=== PATIENT | female | born 1995 | race Caucasian/White ===

== ENCOUNTER → 2018-01-21 | Outpatient (CLI) | payer BC ==
--- NOTE | 2018-01-21 14:01 | RADIOLOGY REPORT (SQ) ---
EXAM DESCRIPTION: KUB COMPLETED DATE/TIME: 01/21/2018 1:49 pm REASON FOR STUDY: UNSPECIFIED ABDOMINAL PAIN R10.9 UNSPECIFIED ABDOMINAL PAIN R10.9 UNSPECIFIED AB DOMINAL PAIN R10.9 UNSPECIFIED ABDOMINAL PAIN COMPARISON: None. NUMBER OF VIEWS: One view. TECHNIQUE: Supine radiographic image of the abdomen acquired. LIMITATIONS: None. FINDINGS: BOWEL GAS PATTERN: Normal bowel gas pattern. No dilated loops. Small amount of radiopaque stool in the right colon and rectosigmoid. This could be related to Pepto-Bismol or antacids. CALCIFICATIONS: No suspicious calcifications. SOFT TISSUES: No gross mass or suggestion of organomegaly. HARDWARE: None in the abdomen. BONES: No acute fracture. No worrisome bone lesions. OTHER: No other significant finding. IMPRESSION: Nonobstructive bowel gas pattern TECHNICAL DOCUMENTATION: JOB ID: [id number] [employer]- All Rights Reserved Reading location - IP/workstation name: [email or web address]
[2018-01-21 14:02] LABS: ABSOLUTE EOSINOPHILS # (AUTO) 0.1 10^3/uL (0.0-0.6); ABSOLUTE LYMPHOCYTES (AUTO) 1.4 10^3/uL (0.5-4.7); ABSOLUTE MONOCYTES (AUTO) 0.8 10^3/uL (0.1-1.4); ABSOLUTE NEUT (AUTO) 5.3 10^3/uL (1.7-8.2); BASOPHILS % (AUTO) 0.2 % (0-2); EOSINOPHILS % (AUTO) 1.2 % (0-6); HEMATOCRIT 42.8 % (36.0-47.0); HEMOGLOBIN 14.7 g/dL (12.0-15.5); LYMPHOCYTES % (AUTO) 18.2 % (13-45); MEAN CORPUSCULAR HEMOGLOBIN 32.1 pg (27.0-33.4); MEAN CORPUSCULAR HGB CONC 34.5 g/dL (32.0-36.0); MEAN CORPUSCULAR VOLUME 93 fl (80-97); MONOCYTES % (AUTO) 10.9 % (3-13); PLATELET COUNT 200 10^3/uL (150-450); RED BLOOD COUNT 4.59 10^6/uL (3.72-5.28); RED CELL DISTRIBUTION WIDTH 13.7 % (11.5-14.0); SEGMENTED NEUTROPHILS % (AUTO) 69.5 % (42-78); TOTAL CELLS COUNTED % (AUTO) 100 %; WHITE BLOOD COUNT 7.6 10^3/uL (4.0-10.5)
[2018-01-21 14:20] LABS: ALANINE AMINOTRANSFERASE 28 U/L (9-52); ALBUMIN 4.2 g/dL (3.5-5.0); ALKALINE PHOSPHATASE 87 U/L (38-126); ANION GAP 11 (5-19); ASPARTATE AMINO TRANSFERASE 25 U/L (14-36); BILIRUBIN,DIRECT 0.2 mg/dL (0.0-0.4); BILIRUBIN,TOTAL 1.1 mg/dL (0.2-1.3); BLOOD UREA NITROGEN 6 mg/dL (7-20); CALCIUM 10.2 mg/dL (8.4-10.2); CARBON DIOXIDE 29 mmol/L (22-30); CHLORIDE 103 mmol/L (98-107); GLUCOSE 94 mg/dL (75-110); LIPASE 20.6 U/L (23-300); POTASSIUM 4.3 mmol/L (3.6-5.0); SODIUM 143.1 mmol/L (137-145); TOTAL PROTEIN 7.1 g/dL (6.3-8.2)
== END ==
LOC: OD 13:27
PROVIDERS: ATTEND Nurse Practitioner Acute Care
DX: R10.9 Unspecified abdominal pain (principal)
CPT/HCPCS: 36415; 74018; 80053; 83690; 85025; 87086

== ENCOUNTER 2018-02-15 12:01 | Inpatient (IN) | payer BC ==
[~2018-02-15 12:01] MED LIST: GLYCOPYRROLATE INJ 0.4 MG/2 ML VIAL ONE; KETOROLAC TROMETHAMINE 60 MG/2 ML SDV ONE; NEOSTIGMINE METHYLSULFATE 10 MG/10 ML VIAL ONE; ONDANSETRON HCL INJ/PF 4 MG/2 ML SDV ONE; ROCURONIUM BROMIDE INJ 50 MG/5 ML VIAL IV ONE; SUCCINYLCHOLINE CHLORIDE INJ 200 MG/10 ML VIAL ONE
[2018-02-15] MEDS ORDERED: ONDANSETRON HCL INJ/PF 4 MG/2 ML SDV IV ONE (12:28)
[2018-02-15] MEDS ORDERED: FENTANYL CITRATE INJ/PF 100 MCG/2 ML AMPUL IV ONE (12:28)
--- NOTE | 2018-02-15 12:31 | ER Document Report ---
ED Medical Screen (RME) - General Chief Complaint: Abdominal Pain Stated Complaint: VOMITING Time Seen by Provider: 02/15/18 12:27 Notes: RAPID MEDICAL EVALUATION DISCLOSURE I have seen this patient as part of a Rapid Medical Evaluation and, if applicable, placed any initially appropriate orders. The patient will be seen and fully evaluated, including a full history and physical exam, by a provider ( in Main ED or Fast Track) when a room becomes available. 22-year-old female here with complaints of right upper quadrant abdominal pain ongoing for the past 1-1/2 months. They saw their PCP and blood work and x- rays were reported as normal. She has not had a CT or ultrasound. She has noticed that the pain worsens after eating food specifically but has not noticed anything else making the pain worse. She usually has nausea and vomiting after eating food as well. She is here today because over the past 12- 15 hours, she has been constantly having nausea and vomiting. They went to their PCP again today and were sent here for evaluation. No prior history of pancreatitis. EXAM Moderate right upper quadrant TTP Mild epigastric TTP No RLQ TTP TRAVEL OUTSIDE OF THE [place] IN LAST 30 DAYS: No - Related Data Allergies/Adverse Reactions: No Known Allergies Allergy (Unverified 02/15/18 12:05) Past Medical History - Social History Chew tobacco use (# tins/day): No Frequency of alcohol use: None Drug Abuse: None Renal/ Medical History: Denies: Hx Peritoneal Dialysis Physical Exam - Vital signs Vitals: Temp Pulse Resp BP Pulse Ox 98.7 F 81 20 128/92 H 100 02/15/18 12:18 02/15/18 12:18 02/15/18 12:18 02/15/18 12:18 02/15/18 12:18 Course - Vital Signs Vital signs: Temp Pulse Resp BP Pulse Ox 98.7 F 81 20 128/92 H 100 02/15/18 12:18 02/15/18 12:18 02/15/18 12:18 02/15/18 12:18 02/15/18 12:18
[2018-02-15 13:43] LABS: ABSOLUTE LYMPHOCYTES (AUTO) 1.5 10^3/uL (0.5-4.7); ABSOLUTE MONOCYTES (AUTO) 0.6 10^3/uL (0.1-1.4); ABSOLUTE NEUT (AUTO) 9.7 10^3/uL (1.7-8.2); BASOPHILS % (AUTO) 0.2 % (0-2); EOSINOPHILS % (AUTO) 0.1 % (0-6); HEMATOCRIT 50.1 % (36.0-47.0); HEMOGLOBIN 16.8 g/dL (12.0-15.5); LYMPHOCYTES % (AUTO) 12.7 % (13-45); MEAN CORPUSCULAR HEMOGLOBIN 30.8 pg (27.0-33.4); MEAN CORPUSCULAR HGB CONC 33.6 g/dL (32.0-36.0); MEAN CORPUSCULAR VOLUME 92 fl (80-97); MONOCYTES % (AUTO) 5.2 % (3-13); PLATELET COUNT 331 10^3/uL (150-450); RED BLOOD COUNT 5.46 10^6/uL (3.72-5.28); RED CELL DISTRIBUTION WIDTH 14.4 % (11.5-14.0); SEGMENTED NEUTROPHILS % (AUTO) 81.8 % (42-78); TOTAL CELLS COUNTED % (AUTO) 100 %; WHITE BLOOD COUNT 11.8 10^3/uL (4.0-10.5)
[2018-02-15 14:00] LABS: ALANINE AMINOTRANSFERASE 25 U/L (9-52); ALBUMIN 4.4 g/dL (3.5-5.0); ALKALINE PHOSPHATASE 85 U/L (38-126); ANION GAP 17 (5-19); ASPARTATE AMINO TRANSFERASE 22 U/L (14-36); BILIRUBIN,DIRECT 0.4 mg/dL (0.0-0.4); BILIRUBIN,TOTAL 0.7 mg/dL (0.2-1.3); BLOOD UREA NITROGEN 11 mg/dL (7-20); CALCIUM 10.4 mg/dL (8.4-10.2); CARBON DIOXIDE 27 mmol/L (22-30); CHLORIDE 99 mmol/L (98-107); GLUCOSE 113 mg/dL (75-110); LIPASE 25.7 U/L (23-300); POTASSIUM 5.4 mmol/L (3.6-5.0); SODIUM 142.5 mmol/L (137-145); TOTAL PROTEIN 8.3 g/dL (6.3-8.2)
[2018-02-15 14:19] LABS: APPEARANCE,URINE SLIGHTLY-CLOUDY; BILIRUBIN,URINE NEGATIVE (NEGATIVE); COLOR,URINE AMBER; GLUCOSE, URINE NEGATIVE (NEGATIVE); KETONES,URINE 20 mg/dL (NEGATIVE); LEUKOCYTE ESTERASE,URINE SMALL (NEGATIVE); NITRITE,URINE NEGATIVE (NEGATIVE); PROTEIN,URINE 30 mg/dL (NEGATIVE); URINE SPECIFIC GRAVITY 1.025
--- NOTE | 2018-02-15 14:34 | ER Document Report ---
ED General - General Chief Complaint: Abdominal Pain Stated Complaint: VOMITING Time Seen by Provider: 02/15/18 12:27 Notes: Patient is a 22 year old female who presents from with a chief complaint of generalized abdominal pain for 6 weeks now with associated nausea and vomiting that started yesterday. They state that they had gone to a urgent care where they had labs and an x-ray done and told to do bland diet. They did not follow- up with their primary care afterwards. They state that they went back to the urgent care today and they referred over to the ED given her prolonged abdominal pain. She points to periumbilical region of her pain. She states however that she has constant abdominal pain that worsens postprandial. She states that it is a sharp stabbing pain in her stomach and right upper quadrant. She states that last time she was 530 last evening but she had nausea and vomiting throughout yesterday. She denies any fevers or chills. Patient admits to daily cigarette smoking, states that she does not drink anymore but from July to December she was drinking approximately 1 bottle of wine a day. She states that she does not drink any hard liquor anything currently. She denies any drug use. Patient states she is sexually active and has had a history of irregular periods. Has never had a Pap smear in the past. Denies any episodes of abnormal vaginal bleeding or discharge TRAVEL OUTSIDE OF THE [place] IN LAST 30 DAYS: No - Related Data Allergies/Adverse Reactions: No Known Allergies Allergy (Verified 02/15/18 16:33) Past Medical History - Social History Smoking Status: Never Smoker Chew tobacco use (# tins/day): No Frequency of alcohol use: None Drug Abuse: None Family History: Reviewed & Not Pertinent Patient has suicidal ideation: No Patient has homicidal ideation: No Renal/ Medical History: Denies: Hx Peritoneal Dialysis Review of Systems - Review of Systems Constitutional: No symptoms reported Cardiovascular: No symptoms reported Respiratory: No symptoms reported Gastrointestinal: See HPI Genitourinary: No symptoms reported Female Genitourinary: Irregular period Musculoskeletal: No symptoms reported Physical Exam - Vital signs Vitals: Temp Pulse Resp BP Pulse Ox 98.7 F 81 20 128/92 H 100 02/15/18 12:18 02/15/18 12:18 02/15/18 12:18 02/15/18 12:18 02/15/18 12:18 - Notes Notes: PHYSICAL EXAM GENERAL: Alert, interacts well. HEAD: Normocephalic, atraumatic. EYES: Pupils equal, round, and reactive to light. Extraocular movements intact. ENT: Oral mucosa moist, tongue midline. NECK: Full range of motion. Supple. Trachea midline. LUNGS: Clear to auscultation bilaterally, no wheezes, rales, or rhonchi. No respiratory distress. HEART: Regular rate and rhythm. No murmurs, gallops, or rubs. ABDOMEN: Soft, mild-moderate distention, moderate diffuse tenderness. No guarding, rebound, or rigidity.. Bowel sounds present in all 4 quadrants. EXTREMITIES: Moves all 4 extremities spontaneously. No edema, radial and dorsalis pedis pulses 2/4 bilaterally. No cyanosis. NEUROLOGICAL: Alert and oriented x4. Normal speech. PSYCH: Normal affect, normal mood. SKIN: Warm, dry, normal turgor. No rashes or lesions noted. Course - Re-evaluation Re-evalutation: 02/15/18 14:48 Patient is a 22-year-old female who presents emergency department with chronic six-week abdominal pain that is constant with intermittent sharp stabbing pains. A gallbladder workup was ordered in triage. Ultrasound does not reveal any evidence of cholecystitis or choledocholithiasis however there is ascites surrounding the liver. Based on this abnormality in an otherwise healthy 22- year-old and abdominal distention, CT the abdomen and pelvis with IV contrast was ordered. 02/15/18 17:[address] the abdomen and pelvis shows evidence of moderate ascites with a complete small bowel obstruction with equalization within the small bowel as well as complicated bilateral cystic structures on the ovaries. Case was reviewed with attending surgeon piped buttonhole machine operator Dr. Galeas who assessed the patient and agrees to take her to the OR to decompress her small bowel obstruction and will send the ascites for analysis. A consult has been placed as well as the case reviewed with Dr. Amanda regarding her complicated cystic structures on bilateral ovaries. She states that she will consult in house. Did review this with family at the bedside who were agreeable for admission. - Vital Signs Vital signs: Temp Pulse Resp BP Pulse Ox 98.7 F 81 20 128/92 H 100 02/15/18 12:18 02/15/18 12:18 02/15/18 12:18 02/15/18 12:18 02/15/18 12:18 - Laboratory Result Diagrams: 02/15/18 13:04 02/15/18 18:00 Laboratory results interpreted by me: 02/15/18 02/15/18 02/15/18 13:04 13:04 13:53 WBC 11.8 H RBC 5.46 H Hgb 16.8 H Hct 50.1 H RDW 14.4 H Seg Neutrophils % 81.8 H Lymphocytes % 12.7 L Absolute Neutrophils 9.7 H Potassium 5.4 H Glucose 113 H Calcium 10.4 H Total Protein 8.3 H Urine Protein 30 H Urine Ketones 20 H Urine Urobilinogen 2.0 H Ur Leukocyte Esterase SMALL H Urine Ascorbic Acid 40 H - Diagnostic Test Radiology reviewed: Image reviewed, Reports reviewed Discharge - Discharge Clinical Impression: SBO (small bowel obstruction) Ovarian cyst Qualifiers: Laterality: bilateral Qualified Code(s): N83.201 - Unspecified ovarian cyst, right side Ascites Qualifiers: Ascites type: other type Qualified Code(s): R18.8 - Other ascites Condition: Stable Disposition: ADMITTED INPATIENT Admitting Provider: Surgicalist Unit Admitted: Surgical Floor
--- NOTE | 2018-02-15 14:41 | RADIOLOGY REPORT (SQ) ---
EXAM DESCRIPTION: U/S ABDOMEN LIMITED W/O DOP COMPLETED DATE/TIME: 02/15/2018 2:12 pm REASON FOR STUDY: RUQ pain after eating COMPARISON: None. TECHNIQUE: Dynamic and static grayscale images acquired of the abdomen and recorded on PACS. Additio nal selected color Doppler and spectral images recorded. LIMITATIONS: None. FINDINGS: PANCREAS: No definite abnormality seen. LIVER: The liver demonstrates normal echogenicity measuring 15.2 cm. LIVER VASCULATURE: Normal directional flow of the main portal vein and hepatic veins. GALLBLADDER: The gallbladder demonstrates no abnormality. The wall thickness is 1 mm. ULTRASOUND-DETECTED BLANCA'S SIGN: Negative. INTRAHEPATIC DUCTS AND COMMON DUCT: CBD measures 3.5 mm. Intrahepatic ducts normal caliber. No filli ng defects. INFERIOR VENA CAVA: Normal flow. AORTA: The proximal abdominal aorta measures 1.9 cm in AP diameter. The mid abdominal aorta measures 1.6 cm in AP diameterr and distally 1.3 cm. RIGHT KIDNEY: The right kidney is normal measuring 10.2 cm in length by 3.5 cm in AP diameter by 4.4 cm in transverse diameter. No hydronephrosis. PERITONEAL AND RIGHT PLEURAL SPACE: Perihepatic ascites. OTHER: No other significant findings. IMPRESSION: Evidence of ascites. Otherwise, normal limited abdominal ultrasound. TECHNICAL DOCUMENTATION: JOB ID: [id number] SC-[id number] 2010 [employer]- All Rights Reserved Reading location - IP/workstation name: [email or web address]
--- NOTE | 2018-02-15 16:16 | RADIOLOGY REPORT (SQ) ---
EXAM DESCRIPTION: CT ABD/PELVIS WITH IV ONLY COMPLETED DATE/TIME: 02/15/2018 3:23 pm REASON FOR STUDY: generalized abdominal pain, ascites COMPARISON: None. TECHNIQUE: CT scan of the abdomen and pelvis performed using helical scanning technique with dynamic intravenous contrast injection. No oral contrast. Images reviewed with lung, soft tissue, and bone windows. Reconstructed coronal and sagittal MPR images reviewed. Delayed images for evaluation of the urinary system also acquired. All images stored on PACS. All CT scanners at this facility use dose modulation, iterative reconstruction, and/or weight based d osing when appropriate to reduce radiation dose to as low as reasonably achievable (ALARA). [facility]: Dose Right [facility]: CareDose [facility]: Dose Right [facility]: Teradose 4D [facility]: Mobio CONTRAST TYPE AND DOSE: Isovue 370. 66 mL. RENAL FUNCTION: Creatinine: 0.63 RADIATION DOSE: 523.9 LIMITATIONS: None. FINDINGS: LOWER CHEST: No abnormality seen. LIVER: No abnormality seen. The liver is borderline in size measuring 17.1 cm in length. SPLEEN: No abnormality seen. PANCREAS: No abnormality seen. GALLBLADDER: No abnormality seen. ADRENAL GLANDS: No abnormality seen. RIGHT KIDNEY AND URETER: No abnormality seen. LEFT KIDNEY AND URETER: No abnormality seen. AORTA AND VESSELS: No aneurysm. No dissection. Renal arteries, SMA, celiac without stenosis. RETROPERITONEUM: No retroperitoneal adenopathy, hemorrhage or masses. BOWEL AND PERITONEAL CAVITY: There is evidence of marked distention of small bowel in the upper and m id abdomen with fecalization of small bowel noted. The findings are consistent with at least a parti al small bowel obstruction. The distal small bowel is less distended than bowel proximal to the righ t lower quadrant. There are thickened loops of small bowel noted in the right lower abdomen. Hiatal hernia is noted. APPENDIX: Not well visualized. PELVIS: Uterus and adnexal regions: The uterus is normal. There is evidence of bilateral ovarian cy st. The largest ovarian cyst on the right measures 2.5 x 2 cm PE There is evidence of prominent cyst ic mass in the left adnexal region measuring 3.6 x 4.1 x 4.1 cm. Follow-up pelvic ultrasound would b e useful. ABDOMINAL WALL: No masses. No hernias. BONES: No significant or acute findings. OTHER: No other significant finding. IMPRESSION: 1. Borderline hepatomegaly. Changes of abdominal and pelvic ascites. 2. Findings con sistent with partial small bowel obstruction. 3. Bilateral ovarian cyst. Prominent cystic mass ext ending from left ovary measuring 3.6 x 4.1 by 4.1 cm. COMMENT: The findings were discussed with Julienne Bird. Pelvic ultrasound will be obtained. TECHNICAL DOCUMENTATION: JOB ID: [id number] SC-[id number] Quality ID # [id number]: Final reports with documentation of one or more dose reduction techniques (e.g., Au tomated exposure control, adjustment of the mA and/or kV according to patient size, use of iterative reconstruction technique) 2010 [employer]- All Rights Reserved Reading location - IP/workstation name: [email or web address]
[2018-02-15] MEDS ORDERED: RINGERS SOLUTION,LACTATED 1,000 ML IV PRN (17:25)
--- NOTE | 2018-02-15 17:26 | PDOC H&P ---
History of Present Illness Admission Date/PCP: 02/15/18 17:04 Patient complains of: abdominal pain, nausea, vomiting History of Present Illness: FARHAD STEWART is a 22 year old female with a several month history of abdominal pain. Previously, her abdominal pain waxes and wanes. She has a history of large amounts of alcohol use, however she quit drinking approximately 2 months ago. Patient reports increasing distention for the last 12-24 hours with sharp, stabbing, unrelenting abdominal pain. The pain is worse on her right side. Her pain has never become severe like this before. Nothing makes the pain better. Palpation and movement make the pain worse. The patient reports several episodes of emesis. The patient has not had a bowel movement in several days. Past Medical History Cardiac Medical History: Reports: None Pulmonary Medical History: Reports: None EENT Medical History: Reports: None Neurological Medical History: Reports: None Endocrine Medical History: Reports: None Renal/ Medical History: Reports: None Malignancy Medical History: Reports: None GI Medical History: Reports: None Musculoskeltal Medical History: Reports: None Skin Medical History: Reports: None Psychiatric Medical History: Reports: None, Other - History of alcohol abuse, reports that she quit drinking 2 months ago. Traumatic Medical History: Reports: None Hematology: Reports: None Infectious Medical History: Reports: None Past Surgical History Past Surgical History: Reports: None Social History Smoking Status: Never Smoker Frequency of Alcohol Use: Heavy - Previously heavy, but reports that she quit drinking 2 months ago. Last Alcohol Use: 12/18/17 Family History Family History: Malignancy - Unknown bone cancer maternal grandmother Parental Family History Reviewed: Yes Children Family History Reviewed: Yes Sibling(s) Family History Reviewed.: Yes Medication/Allergy Allergies/Adverse Reactions: No Known Allergies Allergy (Verified 02/15/18 16:33) Review of Systems Constitutional: PRESENT: anorexia, chills, fatigue, weakness Eyes: ABSENT: visual disturbances Ears: ABSENT: hearing changes Nose, Mouth, and Throat: ABSENT: sore throat Cardiovascular: ABSENT: chest pain, dyspnea on exertion, palpitations Respiratory: ABSENT: cough, dyspnea, hemoptysis Gastrointestinal: PRESENT: abdominal pain, bloating, nausea, vomiting. ABSENT: hematemesis Genitourinary: ABSENT: dysuria, hematuria Musculoskeletal: ABSENT: back pain, joint swelling Integumentary: ABSENT: lesions, pruritus, rash Neurological: ABSENT: abnormal gait, abnormal speech, confusion, memory loss, numbness, paresthesias Psychiatric: ABSENT: anxiety, hallucinations Endocrine: ABSENT: cold intolerance, heat intolerance Hematologic/Lymphatic: ABSENT: easy bleeding, easy bruising Physical Exam Vital Signs: Temp Pulse Resp BP Pulse Ox 98.7 F 81 20 128/92 H 100 02/15/18 12:18 02/15/18 12:18 02/15/18 12:18 02/15/18 12:18 02/15/18 12:18 General appearance: PRESENT: mild distress - Abdominal Head exam: PRESENT: atraumatic, normocephalic Eye exam: PRESENT: EOMI, PERRLA. ABSENT: conjunctival injection, scleral icterus Mouth exam: PRESENT: moist, neck supple Teeth exam: ABSENT: poor dentation Neck exam: ABSENT: lymphadenopathy, meningismus, tenderness, thyromegaly, tracheal deviation Respiratory exam: PRESENT: clear to auscultation meka, tachypnea. ABSENT: chest wall tenderness, rales, retraction, rhonchi Cardiovascular exam: PRESENT: tachycardia - Mild Pulses: PRESENT: normal radial pulses Vascular exam: PRESENT: normal capillary refill. ABSENT: pallor GI/Abdominal exam: PRESENT: distended, guarding, tenderness, other - Involuntary guarding and peritonitis present on exam. Rectal exam: PRESENT: deferred Extremities exam: ABSENT: tenderness Musculoskeletal exam: PRESENT: normal inspection. ABSENT: tenderness Neurological exam: PRESENT: alert, awake, oriented to person, oriented to place , oriented to time, CN II-XII grossly intact. ABSENT: motor sensory deficit Psychiatric exam: PRESENT: anxious Skin exam: ABSENT: cyanosis, erythema, jaundice Results Impressions: Abdomen Ultrasound 02/15/18 12:28 IMPRESSION: Evidence of ascites. Otherwise, normal limited abdominal ultrasound. Abdomen/Pelvis CT 02/15/18 14:48 IMPRESSION: 1. Borderline hepatomegaly. Changes of abdominal and pelvic ascites. 2. Findings consistent with partial small bowel obstruction. 3. Bilateral ovarian cyst. Prominent cystic mass extending from left ovary measuring 3.6 x 4.1 by 4.1 cm. Assessment & Plan - Diagnosis (1) Ascites Qualifiers: Ascites type: other type Qualified Code(s): R18.8 - Other ascites Is this a current diagnosis for this admission?: Yes (2) Ovarian cyst Qualifiers: Laterality: bilateral Qualified Code(s): N83.201 - Unspecified ovarian cyst , right side; N83.202 - Unspecified ovarian cyst, left side; N83.202 - Unspecified ovarian cyst, left side Is this a current diagnosis for this admission?: Yes (3) SBO (small bowel obstruction) Is this a current diagnosis for this admission?: Yes - Inpatient Certification Medical Necessity: Need for Surgery - Plan Summary Plan Summary: This is a 22-year-old female with a several month history of abdominal pain. She reports that her pain became severe yesterday, and was accompanied by distention. She also reports multiple episodes of vomiting over the last 12 hours. She has been unable to keep down any food or liquid today. Patient has a CT scan consistent with a complete bowel obstruction with fecalization of the small bowel contents. She also has signs of peritonitis on exam. She has no history of previous surgery. I have recommended exploration to relieve her bowel obstruction and ascertain the cause. Further treatment to be determined after surgery, once the cause of her bowel obstruction is more clear. I will consult [facility] for an evaluation regarding her ovarian cysts.
[2018-02-15] MEDS ORDERED: CEFOXITIN INJ 1 GM VIAL IV ONE (17:28)
[2018-02-15] MEDS ORDERED: FENTANYL CITRATE INJ/PF 250 MCG/5 ML AMPULE ONE (17:36)
[2018-02-15] MEDS ORDERED: MIDAZOLAM 2 MG/2 ML INJ ONE (17:36)
[2018-02-15] MEDS ORDERED: EPHEDRINE SULFATE INJ 50 MG/1 ML AMPULE ONE (17:36)
[2018-02-15] MEDS ORDERED: ACETAMINOPHEN 100 ML IV ONE (17:37)
[2018-02-15] MEDS ORDERED: HYDROMORPHONE HCL INJ/PF 2 MG/ML AMPULE ONE (17:37)
[2018-02-15] MEDS ORDERED: PROPOFOL INJ 200 MG/20 ML VIAL IV ONE (17:37)
[2018-02-15 18:34] LABS: ANION GAP 13 (5-19); BLOOD UREA NITROGEN 12 mg/dL (7-20); CALCIUM 9.5 mg/dL (8.4-10.2); CARBON DIOXIDE 28 mmol/L (22-30); CHLORIDE 100 mmol/L (98-107); GLUCOSE 98 mg/dL (75-110); POTASSIUM 4.5 mmol/L (3.6-5.0); SODIUM 140.6 mmol/L (137-145)
[2018-02-15] MEDS ORDERED: MORPHINE SULFATE 10 MG/ML INJ IV PRN (19:28)
[2018-02-15] MEDS ORDERED: PROMETHAZINE HCL INJ 25 MG/1 ML VIAL IV PRN ×2 (19:28)
[2018-02-15] MEDS ORDERED: MEPERIDINE HCL/PF INJ 25 MG/1 ML DISP.SYRIN IV PRN (19:28)
[2018-02-15] MEDS ORDERED: OXYCODONE-ACETAMINOPHEN 5-325 MG TABLET PO PRN ×2 (19:28)
[2018-02-15] MEDS ORDERED: DIPHENHYDRAMINE HCL 50 MG/ML VIAL IV PRN (19:28)
[2018-02-15] MEDS ORDERED: FENTANYL CITRATE INJ/PF 100 MCG/2 ML AMPUL IV PRN ×3 (19:28)
[2018-02-15] MEDS ORDERED: ONDANSETRON HCL INJ/PF 4 MG/2 ML SDV IV PRN (20:58)
[2018-02-15] MEDS ORDERED: GLUCAGON,HUMAN RECOMB 1 MG INJ SUBCUT PRN (20:58)
[2018-02-15] MEDS ORDERED: DEXTROSE 50%-WATER 25 GM/50 ML DISP.SYRIN IV PRN ×2 (20:58)
[2018-02-15] MEDS ORDERED: DEXTROSE 40% GEL 15 GM TUBE PO PRN ×2 (20:58)
[2018-02-15] MEDS: HYDROMORPHONE HCL INJ/PF 2 MG/ML AMPULE ONE ×4 (21:05→21:25)
[2018-02-15] MEDS: HYDROMORPHONE HCL INJ/PF 2 MG/ML AMPULE IV PRN (22:37)
[2018-02-15] MEDS: FAMOTIDINE INJ/PF 20 MG/2 ML SDV IV SCH (22:37)
[2018-02-15] MEDS: POTASSI CL 20 MEQ/D5-1/2NS 1L 1,000 ML IV PRN (22:37)
[2018-02-15] MEDS ORDERED: DOXYCYCLINE HYCLATE INJ 100 MG VIAL ONE (23:06)
[2018-02-15] MEDS ORDERED: PIPERACILLIN/TAZOBACTAM 3.375 GM VIAL IV ONE (23:07)
[2018-02-15] MEDS: PIPERACILLIN SODIUM/TAZOBACTAM 3.375 GM in NORMAL SALINE 100 ML IV SCH (23:32)
--- NOTE | 2018-02-15 23:35 | Operative Report ---
Operative Report DATE OF SURGERY: 02/15/18 PREOPERATIVE DIAGNOSIS: 1. Small bowel obstruction. 2. Peritonitis POSTOPERATIVE DIAGNOSIS: 1. Small bowel obstruction due to adhesions in the pelvis. 2. Purulent peritonitis. 3. Tubo-ovarian abscess OPERATION: 1. Exploratory laparoscopy converted to laparotomy. 2. Lysis of adhesions SURGEON: GOKUL FRANCOIS ANESTHESIA: GA TISSUE REMOVED OR ALTERED: None COMPLICATIONS: Tubo-ovarian abscess identified in the pelvis (with purulent peritonitis) causing multiple adhesions of the small bowel. Dr. Amanda consulted intraoperatively for an evaluation of the tubo-ovarian abscess. ESTIMATED BLOOD LOSS: 50 cc PROCEDURE: Drains/implants: None. After informed consent was obtained, the patient was laid in the supine position. The area of the abdomen was prepped and draped in a normal sterile fashion. A small left upper quadrant incision was created below the costal margin. A 5 mm camera was then introduced into the abdomen under direct laparoscopic visualization using the Optiview technique. Gas insufflation was attached, and pneumoperitoneum was achieved. Survey of the abdomen was performed. There were dilated loops of small bowel within the abdomen, however more concerning was the presence of purulent peritonitis. When this was identified, the operation was converted to an exploratory laparotomy. The midline was incised using a 10 blade scalpel down to the linea alba fascia. The abdomen was entered sharply. Examination was then undertaken. There were a large amount of adhesions of the omentum and small bowel down into the pelvis. Fibrinous adhesions were found involving the small intestine and cecum. These adhesions had formed a closed loop obstruction in the distal small intestine. The adhesions were lysed, taking great care not to injure the small bowel, colon, or pelvic structures. While freeing the small bowel, there was found to be active purulence in and around bilateral ovaries. This was highly suspicious for pelvic inflammatory disease with tubo-ovarian abscess. At this time Dr. Amanda was consulted. The small bowel was completely freed and the lysis of adhesions was completed. The abdominal cavity was then inspected. The liver was examined, and there were no signs of malignancy or other abnormality. The gallbladder appeared normal. The stomach and duodenum appeared normal. The small bowel was run from ligament of Treitz to the ileocecal valve, and aside from dilation from obstruction was normal. The colon was examined in its entirety, and was normal. Dr. Amanda then scrubbed in and examined the pelvic organs. Please see her dictation for details about this. After Dr. Amanda had completed her evaluation, the abdomen was copiously irrigated and suctioned. The midline fascia was then reapproximated using #1 PDS suture in simple running fashion. The overlying skin was closed using skin stefanie. All sponge, instrument, and needle counts were correct 2. Condition: Fair.
[2018-02-16] MEDS: HYDROMORPHONE HCL INJ/PF 2 MG/ML AMPULE IV PRN ×6 (01:07→20:31)
--- NOTE | 2018-02-16 03:40 | OPERATIVE REPORT E ---
Operative Report NAME: FARHAD STEWART : 1995 AGE: 22Y DATE OF SURGERY: 02/15/2018 ROOM: 527 PREOPERATIVE DIAGNOSIS: Complete small bowel obstruction. POSTOPERATIVE DIAGNOSES: 1. Complete small bowel obstruction. 2. Tubo-ovarian abscess bilaterally. OPERATION: Exploratory laparotomy with lysis of adhesions and diagnosis of tubo-ovarian abscess. PRIMARY SURGEON: Nadeem Galeas MD CONSULTING PHYSICIAN: Sujey Tesfaye MD ANESTHESIA: General by Zena Esqueda MD. FINDINGS: Bilateral tubo-ovarian adhesions and purulence extruding from the left fallopian tube. Dense lesions of the fallopian tubes to the ovaries, as well as evidence of the adhesions that had been released by Dr. Galeas prior to my arrival. COMPLICATIONS: None. ESTIMATED BLOOD LOSS: During my portion of the procedure was approximately 50 mL. PROCEDURE IN DETAIL: I was called to the operating room at the point of Dr. Galeas's completion of release of the small bowel obstruction to examine the fallopian tubes and ovaries as they were found to be quite adhered to the small bowel. Dr. Galeas indicated on my arrival that he had indeed evacuated a large amount of purulent ascites from the abdomen and had released multiple adhesions of the ovaries to the small bowel. I scrubbed in and I located the uterus and followed the round ligaments to the fallopian tube, finding the right fallopian tube encased in adhesions and wrapping around the right ovary. The fallopian tube was very obviously dilated. The left ovary was identified and found to be very enlarged and cystic in appearance, but benign in appearance. There was no purulence noted on immediate examination. The fallopian tube was not easily identifiable secondary to the adhesions and these were very evident to be chronic inflammation. Once I was able to grasp the left ovary, I began some very careful blunt dissection of the remaining adhesions to the lower segment of the small bowel and again, peeling the ovary away from the what I thought was the left fallopian tube. As I began continuing the slices, I noticed some purulence extruding from the area just lateral of the left ovary. I copiously irrigated several times to clear out the purulence and again began dissection of the material away from the left ovary and finding more purulence extruding from this area. Concern for the patient's future fertility led me to try to free the left fallopian tube somewhat from the ovary; however, continued extrusion of purulence from the fimbriated end of the fallopian tube, which was identified after several attempts of lysis of the adhesions led me to abandon this. I discussed with Dr. Galeas that in reality, both fallopian tubes were hydrosalpinx and obviously infected. Although I did try several times to try to salvage the fallopian tube as well as I could, I made the decision to abandon these efforts and to have the patient placed inpatient with Dr. Galeas's service and continue aggressive antibiotics for tubo-ovarian abscess. I noticed at this point that there was a little bit of bleeding coming from the ovarian and fallopian tube juncture right at the area of the fimbria that I was able to identify on this part of the fallopian tube and I did stitch this with a 3-0 Vicryl and the bleeding was controlled. We copiously irrigated several times to dilute any possible infection. I looked again at the right fallopian tube and grasped this with a [place] and tried to follow it to its fimbriated end; however, the fimbriated end was well encased just below the ovary, although part of it was identifiable. This fallopian tube looked to be in slightly better condition than the left fallopian tube, but again, in discussion with Dr. Galeas, I made the decision to not remove the fallopian tube at this time, to do a cooling off with antibiotics and to have the patient follow up with me so that I could have a thorough discussion with her regarding salpingectomy. At this point, I unscrubbed and left the operating room with Dr. Galeas closing. DICTATING PHYSICIAN: SUJEY TESFAYE M.D. [id number] PHY#: [id number] ID: [id number] JOB#: [id number] ACCT: [id number] cc:SUJEY TESFAYE M.D. > MTDD
[2018-02-16] MEDS: PIPERACILLIN SODIUM/TAZOBACTAM 3.375 GM in NORMAL SALINE 100 ML IV SCH ×3 (05:51→17:28)
[2018-02-16] MEDS: KETOROLAC TROMETHAMINE INJ/PF 30 MG/1 ML SDV IV SCH ×3 (05:51→22:29)
--- NOTE | 2018-02-16 06:44 | PDOC PROGRESS REPORT ---
Subjective Progress Note for:: 02/16/18 Subjective:: indicates feeling less nausea. No vomiting since surgery. Abdominal pain manageable with current meds. Reason For Visit: SMALL BOWEL OBSTRUCTION, TUBO OVARIAN ABSCESS Physical Exam - Physical Exam Vital Signs: Temp Pulse Resp BP Pulse Ox 97.9 F 65 15 110/68 99 02/16/18 03:15 02/16/18 03:15 02/16/18 03:15 02/16/18 03:15 02/16/18 03:15 Intake & Output 02/14/18 02/15/18 02/16/18 06:59 06:59 06:59 Intake Total 8490 Output Total 6130 Balance 2360 General appearance: PRESENT: no acute distress, cooperative GI/Abdominal exam: PRESENT: soft Result Laboratory Results: 02/15/18 02/15/18 18:00 18:00 Sodium 140.6 Potassium 4.5 Chloride 100 Carbon Dioxide 28 Anion Gap 13 BUN 12 Creatinine 0.61 Est GFR ( Amer) > 60 Est GFR (Non-Af Amer) > 60 Glucose 98 Calcium 9.5 Blood Type A NEGATIVE Antibody Screen NEGATIVE Impressions: Abdomen Ultrasound 02/15/18 12:28 IMPRESSION: Evidence of ascites. Otherwise, normal limited abdominal ultrasound. Abdomen/Pelvis CT 02/15/18 14:48 IMPRESSION: 1. Borderline hepatomegaly. Changes of abdominal and pelvic ascites. 2. Findings consistent with partial small bowel obstruction. 3. Bilateral ovarian cyst. Prominent cystic mass extending from left ovary measuring 3.6 x 4.1 by 4.1 cm. Status: Image reviewed by me Assessment & Plan - Diagnosis (1) Tubo-ovarian abscess Is this a current diagnosis for this admission?: Yes (2) Ascites Qualifiers: Ascites type: other type Qualified Code(s): R18.8 - Other ascites Is this a current diagnosis for this admission?: Yes (3) Ovarian cyst Qualifiers: Laterality: bilateral Qualified Code(s): N83.201 - Unspecified ovarian cyst , right side; N83.202 - Unspecified ovarian cyst, left side; N83.202 - Unspecified ovarian cyst, left side Is this a current diagnosis for this admission?: Yes (4) SBO (small bowel obstruction) Is this a current diagnosis for this admission?: Yes - Time Time Spent with patient: 15-24 minutes Medications reviewed and adjusted accordingly: Yes Anticipated discharge: Home Within: within 72 hours - Inpatient Certification Based on my medical assessment, after consideration of the patient's comorbidities, presenting symptoms, or acuity I expect that the services needed warrant INPATIENT care.: Yes I certify that my determination is in accordance with my understanding of Medicare's requirements for reasonable and necessary INPATIENT services [42 CFR 412.3e].: Yes Medical Necessity: Need Close Monitoring Due to Risk of Patient Decompensation, Need For IV Fluids, Need for Pain Control, Need for IV Antibiotics - Plan Summary Plan Summary: d/w patient thoroughly regarding findings during surgery. Explained very low likelihood of being able to preserve fertility and that treatment indicated for hydosalpinx/tubo-ovarian abscess is to remove fallopian tubes. Hysterectomy may also be indicated depending on severity and/or recurrance of the disease. Discussed with patient that she will most likely need to seek alternative ways for childbearing such as IVF or adoption. Also discussed with patient that at this time it is most important to recover from SBO which has significantly higher morbidity and mortality associated with it. I assured her that all attempts at preserving her fertility will be made, however based on finding at surgery it would be unlikely to be successful. She voiced understanding of our discussion. I asked her to let me or my partners know if she had any further question. Total time spent was > 20 min. Plan is to continue IV antibiotics for the course of her hospital stay and then to convert to PO antibiotics when able to discharge. Follow up with me at [facility] in about 6 wks after discharge to evaluate and make plans for next interventions.
[2018-02-16 06:45] LABS: ANION GAP 10 (5-19); BLOOD UREA NITROGEN 16 mg/dL (7-20); CALCIUM 8.5 mg/dL (8.4-10.2); CARBON DIOXIDE 29 mmol/L (22-30); CHLORIDE 98 mmol/L (98-107); GLUCOSE 110 mg/dL (75-110); POTASSIUM 4.7 mmol/L (3.6-5.0); SODIUM 136.6 mmol/L (137-145)
[2018-02-16 07:11] LABS: ABSOLUTE LYMPHOCYTES (AUTO) 1.6 10^3/uL (0.5-4.7); ABSOLUTE MONOCYTES (AUTO) 1.8 10^3/uL (0.1-1.4); ABSOLUTE NEUT (AUTO) 10.9 10^3/uL (1.7-8.2); BASOPHILS % (AUTO) 0.1 % (0-2); EOSINOPHILS % (AUTO) 0.3 % (0-6); HEMATOCRIT 41.2 % (36.0-47.0); LYMPHOCYTES % (AUTO) 11.4 % (13-45); MEAN CORPUSCULAR HEMOGLOBIN 30.7 pg (27.0-33.4); MEAN CORPUSCULAR HGB CONC 33.9 g/dL (32.0-36.0); MEAN CORPUSCULAR VOLUME 91 fl (80-97); MONOCYTES % (AUTO) 12.6 % (3-13); PLATELET COUNT 263 10^3/uL (150-450); RED BLOOD COUNT 4.55 10^6/uL (3.72-5.28); RED CELL DISTRIBUTION WIDTH 14.4 % (11.5-14.0); SEGMENTED NEUTROPHILS % (AUTO) 75.6 % (42-78); TOTAL CELLS COUNTED % (AUTO) 100 %; WHITE BLOOD COUNT 14.4 10^3/uL (4.0-10.5)
[2018-02-16 09:37] LABS: CHLAM PCR DETECTED (NOT DETECT); GON PCR NOT DETECTED (NOT DETECT)
[2018-02-16] MEDS: DOXYCYCLINE HYCLATE 100 MG in DEXTROSE 5%-WATER 250 ML IV SCH ×2 (10:19→22:29)
[2018-02-16] MEDS: FAMOTIDINE INJ/PF 20 MG/2 ML SDV IV SCH ×2 (10:19→22:29)
[2018-02-16] MEDS: ENOXAPARIN SODIUM INJ 40 MG/0.4 ML DISP.SYRIN SUBCUT SCH (10:20)
[2018-02-16] MEDS: POTASSI CL 20 MEQ/D5-1/2NS 1L 1,000 ML IV PRN (10:29)
[2018-02-16] MEDS: PHENOL/SODIUM PHENOLATE 100 SPRAY/177 ML BOTTLE PO PRN ×3 (10:38→17:28)
[2018-02-16] MEDS: DEXTROSE 5%-1/2 NORMAL SALINE 1,000 ML IV PRN (10:59)
--- NOTE | 2018-02-16 14:27 | PDOC PROGRESS REPORT ---
Subjective Reason For Visit: SMALL BOWEL OBSTRUCTION, TUBO OVARIAN ABSCESS Physical Exam Vital Signs: Temp Pulse Resp BP Pulse Ox 97.7 F 73 12 100/59 L 100 02/16/18 11:57 02/16/18 11:57 02/16/18 11:57 02/16/18 11:57 02/16/18 11:57 Intake & Output 02/15/18 02/16/18 02/17/18 06:59 06:59 06:59 Intake Total 9490 375 Output Total 6355 Balance 3135 375 Results Laboratory Results: 02/16/18 05:05 02/16/18 05:05 02/15/18 02/15/18 02/16/18 18:00 18:00 05:05 WBC 14.4 H RBC 4.55 Hgb 14.0 D Hct 41.2 MCV 91 MCH 30.7 MCHC 33.9 RDW 14.4 H Plt Count 263 Seg Neutrophils % 75.6 Lymphocytes % 11.4 L Monocytes % 12.6 Eosinophils % 0.3 Basophils % 0.1 Absolute Neutrophils 10.9 H Absolute Lymphocytes 1.6 Absolute Monocytes 1.8 H Absolute Eosinophils 0.0 Absolute Basophils 0.0 Sodium 140.6 Potassium 4.5 Chloride 100 Carbon Dioxide 28 Anion Gap 13 BUN 12 Creatinine 0.61 Est GFR ( Amer) > 60 Est GFR (Non-Af Amer) > 60 Glucose 98 Calcium 9.5 Blood Type A NEGATIVE Antibody Screen NEGATIVE 02/16/18 05:05 WBC RBC Hgb Hct MCV MCH MCHC RDW Plt Count Seg Neutrophils % Lymphocytes % Monocytes % Eosinophils % Basophils % Absolute Neutrophils Absolute Lymphocytes Absolute Monocytes Absolute Eosinophils Absolute Basophils Sodium 136.6 L Potassium 4.7 Chloride 98 Carbon Dioxide 29 Anion Gap 10 BUN 16 Creatinine 0.72 Est GFR ( Amer) > 60 Est GFR (Non-Af Amer) > 60 Glucose 110 Calcium 8.5 Blood Type Antibody Screen Impressions: Abdomen Ultrasound 02/15/18 12:28 IMPRESSION: Evidence of ascites. Otherwise, normal limited abdominal ultrasound. Abdomen/Pelvis CT 02/15/18 14:48 IMPRESSION: 1. Borderline hepatomegaly. Changes of abdominal and pelvic ascites. 2. Findings consistent with partial small bowel obstruction. 3. Bilateral ovarian cyst. Prominent cystic mass extending from left ovary measuring 3.6 x 4.1 by 4.1 cm. Assessment & Plan - Diagnosis (1) Ovarian cyst Qualifiers: Laterality: bilateral Qualified Code(s): N83.201 - Unspecified ovarian cyst , right side; N83.202 - Unspecified ovarian cyst, left side; N83.202 - Unspecified ovarian cyst, left side Is this a current diagnosis for this admission?: Yes (2) SBO (small bowel obstruction) Is this a current diagnosis for this admission?: Yes (3) Purulent peritonitis Is this a current diagnosis for this admission?: Yes (4) Tubo-ovarian abscess Is this a current diagnosis for this admission?: Yes - Plan Summary Plan Summary: This is a 22-year-old female found to have a tubo-ovarian abscess, multiple intra-abdominal adhesions, small bowel obstruction, and purulent peritonitis. The patient is status post exploratory laparotomy with lysis of adhesions and drainage of intra-abdominal abscess. The patient is doing well today. She denies passing any flatus. Her pain is controlled with medications. Maintain NG tube for now. Okay for ice chips and popsicles. Maintain H[place]go for today ( likely removal tomorrow when ambulating). Patient has not yet been out of bed. Encourage ambulation and incentive spirometry. Continue antibiotics and DVT prophylaxis.
[2018-02-17] MEDS: HYDROMORPHONE HCL INJ/PF 2 MG/ML AMPULE IV PRN ×4 (00:12→20:07)
[2018-02-17] MEDS: DEXTROSE 5%-1/2 NORMAL SALINE 1,000 ML IV PRN ×2 (00:44→15:54)
[2018-02-17] MEDS: PIPERACILLIN SODIUM/TAZOBACTAM 3.375 GM in NORMAL SALINE 100 ML IV SCH ×4 (00:44→17:23)
[2018-02-17 05:31] LABS: ABSOLUTE EOSINOPHILS # (AUTO) 0.3 10^3/uL (0.0-0.6); ABSOLUTE LYMPHOCYTES (AUTO) 1.6 10^3/uL (0.5-4.7); ABSOLUTE MONOCYTES (AUTO) 0.9 10^3/uL (0.1-1.4); ABSOLUTE NEUT (AUTO) 4.2 10^3/uL (1.7-8.2); BASOPHILS % (AUTO) 0.2 % (0-2); EOSINOPHILS % (AUTO) 3.6 % (0-6); HEMATOCRIT 38.4 % (36.0-47.0); HEMOGLOBIN 12.8 g/dL (12.0-15.5); LYMPHOCYTES % (AUTO) 23.1 % (13-45); MEAN CORPUSCULAR HEMOGLOBIN 30.6 pg (27.0-33.4); MEAN CORPUSCULAR HGB CONC 33.5 g/dL (32.0-36.0); MEAN CORPUSCULAR VOLUME 91 fl (80-97); MONOCYTES % (AUTO) 13.5 % (3-13); PLATELET COUNT 208 10^3/uL (150-450); RED CELL DISTRIBUTION WIDTH 14.6 % (11.5-14.0); SEGMENTED NEUTROPHILS % (AUTO) 59.6 % (42-78); TOTAL CELLS COUNTED % (AUTO) 100 %
[2018-02-17 05:56] LABS: ANION GAP 8 (5-19); BLOOD UREA NITROGEN 10 mg/dL (7-20); CALCIUM 8.4 mg/dL (8.4-10.2); CARBON DIOXIDE 31 mmol/L (22-30); CHLORIDE 100 mmol/L (98-107); GLUCOSE 79 mg/dL (75-110); SODIUM 138.8 mmol/L (137-145)
[2018-02-17] MEDS: KETOROLAC TROMETHAMINE INJ/PF 30 MG/1 ML SDV IV SCH ×3 (06:11→22:20)
[2018-02-17 06:42] LABS: POTASSIUM 3.7 mmol/L (3.6-5.0)
[2018-02-17] MEDS: PHENOL/SODIUM PHENOLATE 100 SPRAY/177 ML BOTTLE PO PRN ×2 (08:32→15:54)
--- NOTE | 2018-02-17 08:33 | PDOC PROGRESS REPORT ---
Subjective-OB Progress Note for:: 02/17/18 Physical Exam (OB) Vital Signs: Temp Pulse Resp BP Pulse Ox 98.0 F 68 17 107/67 100 02/16/18 19:47 02/16/18 19:47 02/16/18 19:47 02/16/18 19:47 02/16/18 19:47 Intake & Output 02/16/18 02/17/18 02/18/18 06:59 06:59 06:59 Intake Total 9490 1275 375 Output Total 6303 1585 Balance 3135 -310 375 Weight 67.7 kg - Abdomen Description: Soft Hernia Present: No Flatus Presence: Present Stool: Yes - Respiratory Breath sounds: Clear - Extremities Calf: Normal Objective-Diagnostic Laboratory: 02/17/18 04:16 02/17/18 04:16 02/15/18 02/17/18 02/17/18 19:00 04:16 04:16 WBC 7.0 RBC 4.20 Hgb 12.8 Hct 38.4 MCV 91 MCH 30.6 MCHC 33.5 RDW 14.6 H Plt Count 208 Seg Neutrophils % 59.6 Lymphocytes % 23.1 Monocytes % 13.5 H Eosinophils % 3.6 Basophils % 0.2 Absolute Neutrophils 4.2 Absolute Lymphocytes 1.6 Absolute Monocytes 0.9 Absolute Eosinophils 0.3 Absolute Basophils 0.0 Sodium 138.8 Potassium 3.7 D Chloride 100 Carbon Dioxide 31 H Anion Gap 8 BUN 10 Creatinine 0.74 Est GFR ( Amer) > 60 Est GFR (Non-Af Amer) > 60 Glucose 79 Calcium 8.4 Fluid LDH 486 Assessment and Plan(PN) - Assessment and Plan (1) Qualifiers: Weeks of gestation: 40 weeks Qualified Code(s): Z3A.40 - 40 weeks gestation of Is this a current diagnosis for this admission?: Yes Plan:: d/c f/u 1 week - Time Spent with Patient Time with patient: Less than 15 minutes Medications reviewed and adjusted accordingly: Yes - Disposition Anticipated Discharge: Home
--- NOTE | 2018-02-17 09:21 | PDOC PROGRESS REPORT ---
Subjective Progress Note for:: 02/17/18 Subjective:: pt feels better Reason For Visit: SMALL BOWEL OBSTRUCTION, TUBO OVARIAN ABSCESS Physical Exam - Physical Exam Vital Signs: Temp Pulse Resp BP Pulse Ox 98.0 F 68 17 107/67 100 02/16/18 19:47 02/16/18 19:47 02/16/18 19:47 02/16/18 19:47 02/16/18 19:47 Intake & Output 02/16/18 02/17/18 02/18/18 06:59 06:59 06:59 Intake Total 9471 1275 375 Output Total 7366 1585 Balance 3135 -310 375 Weight 67.7 kg General appearance: PRESENT: no acute distress GI/Abdominal exam: PRESENT: soft Result Laboratory Results: 02/17/18 04:16 02/17/18 04:16 02/15/18 02/17/18 02/17/18 19:00 04:16 04:16 WBC 7.0 RBC 4.20 Hgb 12.8 Hct 38.4 MCV 91 MCH 30.6 MCHC 33.5 RDW 14.6 H Plt Count 208 Seg Neutrophils % 59.6 Lymphocytes % 23.1 Monocytes % 13.5 H Eosinophils % 3.6 Basophils % 0.2 Absolute Neutrophils 4.2 Absolute Lymphocytes 1.6 Absolute Monocytes 0.9 Absolute Eosinophils 0.3 Absolute Basophils 0.0 Sodium 138.8 Potassium 3.7 D Chloride 100 Carbon Dioxide 31 H Anion Gap 8 BUN 10 Creatinine 0.74 Est GFR ( Amer) > 60 Est GFR (Non-Af Amer) > 60 Glucose 79 Calcium 8.4 Fluid LDH 486 Impressions: Abdomen Ultrasound 02/15/18 12:28 IMPRESSION: Evidence of ascites. Otherwise, normal limited abdominal ultrasound. Abdomen/Pelvis CT 02/15/18 14:48 IMPRESSION: 1. Borderline hepatomegaly. Changes of abdominal and pelvic ascites. 2. Findings consistent with partial small bowel obstruction. 3. Bilateral ovarian cyst. Prominent cystic mass extending from left ovary measuring 3.6 x 4.1 by 4.1 cm. Assessment & Plan - Diagnosis (1) Qualifiers: Weeks of gestation: 40 weeks Qualified Code(s): Z3A.40 - 40 weeks gestation of Is this a current diagnosis for this admission?: Yes (2) Tubo-ovarian abscess Is this a current diagnosis for this admission?: Yes - Time Time Spent with patient: 15-24 minutes - Plan Summary Plan Summary: dicussed positive chlamydia with pt and plan of management which is IV antibiotics until afebrile or white count wnl then 30 days of po antibiotics
--- NOTE | 2018-02-17 09:36 | PDOC PROGRESS REPORT ---
Subjective Progress Note for:: 02/17/18 Subjective:: Ambulating, voiding; minimal nausea; minimal nasogastric output Reason For Visit: SMALL BOWEL OBSTRUCTION, TUBO OVARIAN ABSCESS Physical Exam Vital Signs: Temp Pulse Resp BP Pulse Ox 98.0 F 68 17 107/67 100 02/16/18 19:47 02/16/18 19:47 02/16/18 19:47 02/16/18 19:47 02/16/18 19:47 Intake & Output 02/16/18 02/17/18 02/18/18 06:59 06:59 06:59 Intake Total 9467 1275 375 Output Total 6391 1585 Balance 3135 -310 375 Weight 67.7 kg General appearance: PRESENT: no acute distress GI/Abdominal exam: PRESENT: other - Soft, midline dressing intact; no peritoneal signs no rigidity, no distention Results Laboratory Results: 02/17/18 04:16 02/17/18 04:16 02/15/18 02/17/18 02/17/18 19:00 04:16 04:16 WBC 7.0 RBC 4.20 Hgb 12.8 Hct 38.4 MCV 91 MCH 30.6 MCHC 33.5 RDW 14.6 H Plt Count 208 Seg Neutrophils % 59.6 Lymphocytes % 23.1 Monocytes % 13.5 H Eosinophils % 3.6 Basophils % 0.2 Absolute Neutrophils 4.2 Absolute Lymphocytes 1.6 Absolute Monocytes 0.9 Absolute Eosinophils 0.3 Absolute Basophils 0.0 Sodium 138.8 Potassium 3.7 D Chloride 100 Carbon Dioxide 31 H Anion Gap 8 BUN 10 Creatinine 0.74 Est GFR ( Amer) > 60 Est GFR (Non-Af Amer) > 60 Glucose 79 Calcium 8.4 Fluid LDH 486 Impressions: Abdomen Ultrasound 02/15/18 12:28 IMPRESSION: Evidence of ascites. Otherwise, normal limited abdominal ultrasound. Abdomen/Pelvis CT 02/15/18 14:48 IMPRESSION: 1. Borderline hepatomegaly. Changes of abdominal and pelvic ascites. 2. Findings consistent with partial small bowel obstruction. 3. Bilateral ovarian cyst. Prominent cystic mass extending from left ovary measuring 3.6 x 4.1 by 4.1 cm. Assessment & Plan - Diagnosis (1) SBO (small bowel obstruction) Is this a current diagnosis for this admission?: Yes Plan: Patient is 2 days status post exploratory laparotomy, lysis of adhesions, drainage of pelvic infection, doing reasonably well, awaiting return Recommend patient's: 1. We will give trial of the nasogastric tube clamping 2. Change abdominal wall dressing 3. Abdominal wall binder to be used when upright. 4. Discussed overall management patient and mother. - Time Time Spent with patient: 15-24 minutes
[2018-02-17] MEDS: FAMOTIDINE INJ/PF 20 MG/2 ML SDV IV SCH ×2 (10:19→22:20)
[2018-02-17] MEDS: DOXYCYCLINE HYCLATE 100 MG in DEXTROSE 5%-WATER 250 ML IV SCH ×2 (10:19→22:20)
[2018-02-17] MEDS: ENOXAPARIN SODIUM INJ 40 MG/0.4 ML DISP.SYRIN SUBCUT SCH (10:19)
[2018-02-17 11:38] LABS: HEPATITIS A AB IGM Negative (Negative); HEPATITIS B CORE AB IGM Negative (Negative); HEPATITS B SURFACE ANTIGEN Negative (Negative)
[2018-02-17 11:48] LABS: HEPATITIS C VIRUS ANTIBODY <0.1 s/co ratio (0.0-0.9)
[2018-02-17] MEDS: ACETAMINOPHEN 100 ML IV SCH ×2 (13:20→18:06)
[2018-02-18] MEDS: ACETAMINOPHEN 100 ML IV SCH ×2 (00:40→06:11)
[2018-02-18] MEDS: PIPERACILLIN SODIUM/TAZOBACTAM 3.375 GM in NORMAL SALINE 100 ML IV SCH ×4 (01:05→17:23)
[2018-02-18] MEDS: HYDROMORPHONE HCL INJ/PF 2 MG/ML AMPULE IV PRN (02:17)
[2018-02-18] MEDS: KETOROLAC TROMETHAMINE INJ/PF 30 MG/1 ML SDV IV SCH ×3 (06:12→22:15)
[2018-02-18] MEDS: DEXTROSE 5%-1/2 NORMAL SALINE 1,000 ML IV PRN (06:13)
--- NOTE | 2018-02-18 09:14 | PDOC PROGRESS REPORT ---
Subjective Progress Note for:: 02/18/18 Subjective:: comfortable, reports flatus today Reason For Visit: SMALL BOWEL OBSTRUCTION, TUBO OVARIAN ABSCESS Physical Exam Vital Signs: Temp Pulse Resp BP Pulse Ox 98.1 F 57 L 17 106/63 99 02/17/18 23:40 02/17/18 23:40 02/17/18 23:40 02/17/18 23:40 02/17/18 23:40 Intake & Output 02/17/18 02/18/18 02/19/18 06:59 06:59 06:59 Intake Total 1275 867 Output Total 1585 2225 Balance -310 -1358 Weight 67.7 kg 67.9 kg General appearance: PRESENT: no acute distress, cooperative Respiratory exam: PRESENT: clear to auscultation meka Cardiovascular exam: PRESENT: RRR GI/Abdominal exam: PRESENT: distended, hypoactive bowel sounds, soft, other - incision c/d/i Results Laboratory Results: 02/17/18 04:16 02/17/18 04:16 02/15/18 19:00 Peritoneal AFB Smear Concentration - Final 02/15/18 19:00 Peritoneal Acid Fast Bacilli Smear - Final Impressions: Abdomen Ultrasound 02/15/18 12:28 IMPRESSION: Evidence of ascites. Otherwise, normal limited abdominal ultrasound. Abdomen/Pelvis CT 02/15/18 14:48 IMPRESSION: 1. Borderline hepatomegaly. Changes of abdominal and pelvic ascites. 2. Findings consistent with partial small bowel obstruction. 3. Bilateral ovarian cyst. Prominent cystic mass extending from left ovary measuring 3.6 x 4.1 by 4.1 cm. Assessment & Plan - Diagnosis (1) SBO (small bowel obstruction) Is this a current diagnosis for this admission?: Yes (2) Tubo-ovarian abscess Is this a current diagnosis for this admission?: Yes - Plan Summary Plan Summary: A/ POD #3 after laparotomy, HEIDI for PID VSS. AF good UO blood work WNL Abdomen slightly distended Flatus today P/ Clamp NGT x 4 hours, if residual < 100 mL and tolerated, remove NGT and start patient on clears
[2018-02-18] MEDS: FAMOTIDINE INJ/PF 20 MG/2 ML SDV IV SCH ×2 (09:20→22:15)
[2018-02-18] MEDS: DOXYCYCLINE HYCLATE 100 MG in DEXTROSE 5%-WATER 250 ML IV SCH ×2 (09:20→22:15)
[2018-02-18] MEDS: ENOXAPARIN SODIUM INJ 40 MG/0.4 ML DISP.SYRIN SUBCUT SCH (09:21)
[2018-02-19] MEDS: PIPERACILLIN SODIUM/TAZOBACTAM 3.375 GM in NORMAL SALINE 100 ML IV SCH ×2 (02:50→06:01)
[2018-02-19] MEDS: KETOROLAC TROMETHAMINE INJ/PF 30 MG/1 ML SDV IV SCH (06:01)
--- NOTE | 2018-02-19 09:22 | PDOC PROGRESS REPORT ---
Subjective Progress Note for:: 02/19/18 Reason For Visit: SMALL BOWEL OBSTRUCTION, TUBO OVARIAN ABSCESS; patient comfortable, flatus, clear liquids tolerated Physical Exam Vital Signs: Temp Pulse Resp BP Pulse Ox 98.6 F 63 16 117/73 98 02/18/18 19:56 02/18/18 19:56 02/18/18 19:56 02/18/18 19:56 02/18/18 19:56 Intake & Output 02/18/18 02/19/18 02/20/18 06:59 06:59 06:59 Intake Total 867 180 Output Total 2225 1350 Balance -1358 -1170 Weight 67.9 kg 65.2 kg General appearance: PRESENT: no acute distress, cooperative Respiratory exam: PRESENT: clear to auscultation meka Cardiovascular exam: PRESENT: RRR GI/Abdominal exam: PRESENT: normal bowel sounds, soft, other - incision c/d/i Results Laboratory Results: 02/17/18 04:16 02/17/18 04:16 02/15/18 19:00 Peritoneal Fungal Smear - Final 02/15/18 19:00 Peritoneal Fungal Smear - Final 02/15/18 19:00 Peritoneal Gram Stain - Final 02/15/18 19:00 Peritoneal Body Fluid Culture - Final Staphylococcus Lugdunensis No Anaerobic Organisms 02/15/18 19:00 Peritoneal AFB Smear Concentration - Final 02/15/18 19:00 Peritoneal Acid Fast Bacilli Smear - Final Impressions: Abdomen Ultrasound 02/15/18 12:28 IMPRESSION: Evidence of ascites. Otherwise, normal limited abdominal ultrasound. Abdomen/Pelvis CT 02/15/18 14:48 IMPRESSION: 1. Borderline hepatomegaly. Changes of abdominal and pelvic ascites. 2. Findings consistent with partial small bowel obstruction. 3. Bilateral ovarian cyst. Prominent cystic mass extending from left ovary measuring 3.6 x 4.1 by 4.1 cm. Assessment & Plan - Diagnosis (1) SBO (small bowel obstruction) Is this a current diagnosis for this admission?: Yes (2) Tubo-ovarian abscess Is this a current diagnosis for this admission?: Yes - Plan Summary Plan Summary: A/ POD #4 after expl. lap, for PID, SBO, POA VSS, AF' WBC normal clears tolerated PE unremarkable P/ Stop IVF Regular diet Home today F/u with Dr. Amanda this week F/U with Dr. Galeas next week Shower only until stefanie in place No wound care needed Flagyl 500 mg po BID x 14 days Doxycyclin 100 mg po BID x 14 days Tylenol and Aleve as needed for pain No lifting > 10 pounds x 3 months, then increase slowly in 6-12 monthsd
--- NOTE | 2018-02-19 10:06 | DISCHARGE SUMMARY E ---
Discharge Summary NAME: FARHAD STEWART : 1995 AGE: 22Y ADMITTED: 02/15/2018 DISCHARGED: 02/19/2018 FINAL DIAGNOSES: 1. PELVIC INFLAMMATORY DISEASE. 2. SMALL BOWEL OBSTRUCTION. PROCEDURE: On February 15, the patient underwent an exploratory laparotomy with lysis of adhesions. COMPLICATIONS: None. HOSPITAL COURSE: This is a healthy 22-year-old female admitted for lower abdominal pain, found to have a small bowel obstruction secondary to pelvic inflammatory disease with abscess formation. The patient underwent surgery on February 15 for exploratory laparotomy with lysis of adhesions secondary to the severe inflammation caused by the pelvic inflammatory disease. The procedure was uneventful. The patient was transferred to the floor. Nasogastric tube was inserted and removed on postoperative day 3. On February 19, the day of discharge, the patient was stable, tolerating regular diet well. Vital signs were stable. Blood work within normal limits. Physical exam unremarkable. The patient was discharged home on February 19 and given followup appointment with LANGUAGE TUTOR, Dr. Sujey Amanda, this coming week on Saturday. She was given an appointment with Dr. Galeas in 1 week. Tylenol and Aleve as needed for pain, Flagyl 500 mg p.o. b.i.d. for 14 days, doxycycline 100 mg p.o. b.i.d. for 14 days. Shower only until with stefanie place. No wound care needed. No lifting more than 10 pounds for about 3 months and then increase the weightlifting accordingly. Activities as tolerated. Regular diet. DICTATING PHYSICIAN: TIARA HERNANDEZ M.D. [id number] PHY#: [id number] ID: [id number] JOB#: [id number] ACCT: [id number] cc:NO Nora TIMMONS M.D. E. RContreras [facility], > [facility]
[2018-02-19 10:47] VITALS: BP 112/67
== END 2018-02-19 11:00 | disposition home or self-care (01) | DRG 742 ==
LOC: ER 12:01 → EH 17:04 → 5 22:05
PROVIDERS: ADMIT Surgery; ATTEND Surgery
PROC: 0DNH0ZZ Release Cecum, Open Approach (ICD-10-PCS; 2018-02-15)
PROC: 0DN80ZZ Release Small Intestine, Open Approach (ICD-10-PCS; 2018-02-15)
PROC: 0UN20ZZ Release Bilateral Ovaries, Open Approach (ICD-10-PCS; 2018-02-15)
PROC: 0UN70ZZ Release Bilateral Fallopian Tubes, Open Approach (ICD-10-PCS; principal; 2018-02-15 18:30)
DX: N73.6 Female pelvic peritoneal adhesions (postinfective) (principal); K65.8 Other peritonitis; K56.52 Intestinal adhesions [bands] with complete obstruction; R18.8 Other ascites; N70.93 Salpingitis and oophoritis, unspecified; N74 Female pelvic inflammatory disorders in diseases classified elsewhere; N83.202 Unspecified ovarian cyst, left side; N83.201 Unspecified ovarian cyst, right side; B95.7 Other staphylococcus as the cause of diseases classified elsewhere; R10.84 Generalized abdominal pain; Z53.31 Laparoscopic surgical procedure converted to open procedure
CPT/HCPCS: 36415; 74177; 76705; 790; 80048; 80053; 80074; 81001; 81025; 83615; 83690; 84702; 85025; 86850; 86900; 86901; 87015; 87070; 87075; 87077; 87101; 87116; 87186; 87205; 87206; 87491; 87591; 88305; 94799; 96374; 96375; 99285; J0131; J0330; J0694; J1170; J1650; J1885; J2250; J2405; J2543; J2704; J3010; J3480; J3490; J7060; J7120; S0028

== ENCOUNTER → 2018-03-24 | Outpatient (CLI) | payer BC ==
--- NOTE | 2018-03-24 16:58 | RADIOLOGY REPORT (SQ) ---
EXAM DESCRIPTION: HYSTEROSALPINGOGRAM; HYSTERO CATH/INJECTION COMPLETED DATE/TIME: 03/24/2018 3:54 pm REASON FOR STUDY: TUBOOVARIAN ABSCESS N70.91 SALPINGITIS, UNSPECIFIED COMPARISON: CT abdomen pelvis 02/15/2018 PROCEDURE: PRE-PROCEDURE: Procedure was explained to the patient. She was told to expect cramping du ring the procedure, and possible spotting post procedure. PROCEDURE: Under direct visual inspection, the cervix was cannulated with the hysterosalpingogram ca theter and contrast injected. TECHNIQUE: Temporal fluoroscopic images acquired during the procedure stored to PACS. FLUOROSCOPY TIME: Less than 10 seconds 16 digital radiographic images saved to PACS. LIMITATIONS: None. FINDINGS: UTERUS: No identified anomalies. No synechia. RIGHT ADNEXA: Fallopian tube adjacent to the uterus is normal caliber. Toward the ovary, the fallopi an tube is dilated and contrast pockets within the fallopian tube at this level. No free spillage of contrast around the right ovary. LEFT ADNEXA: Fallopian tube adjacent to the uterus is normal caliber. Toward the ovary, the fallopian tube is dilated and contrast pockets within the fallopian tube at this level. No free spillage of c ontrast around the left ovary. POST PROCEDURE: The patient tolerated the procedure with no adverse effects. IMPRESSION: Tubal adhesions with occlusion. Endometrial canal, endocervical canal unremarkable. COMMENT: Quality ID [id number]: Final reports for procedures using fluoroscopy that document radiation exp osure indices, or exposure time and number of fluorographic images (if radiation exposure indices are not available) TECHNICAL DOCUMENTATION: JOB ID: [id number] [employer]- All Rights Reserved Reading location - IP/workstation name: [facility]
--- NOTE | 2018-03-24 16:58 | RADIOLOGY REPORT (SQ) ---
EXAM DESCRIPTION: HYSTEROSALPINGOGRAM; HYSTERO CATH/INJECTION COMPLETED DATE/TIME: 03/24/2018 3:54 pm REASON FOR STUDY: TUBOOVARIAN ABSCESS N70.91 SALPINGITIS, UNSPECIFIED COMPARISON: CT abdomen pelvis 02/15/2018 PROCEDURE: PRE-PROCEDURE: Procedure was explained to the patient. She was told to expect cramping du ring the procedure, and possible spotting post procedure. PROCEDURE: Under direct visual inspection, the cervix was cannulated with the hysterosalpingogram ca theter and contrast injected. TECHNIQUE: Temporal fluoroscopic images acquired during the procedure stored to PACS. FLUOROSCOPY TIME: Less than 10 seconds 16 digital radiographic images saved to PACS. LIMITATIONS: None. FINDINGS: UTERUS: No identified anomalies. No synechia. RIGHT ADNEXA: Fallopian tube adjacent to the uterus is normal caliber. Toward the ovary, the fallopi an tube is dilated and contrast pockets within the fallopian tube at this level. No free spillage of contrast around the right ovary. LEFT ADNEXA: Fallopian tube adjacent to the uterus is normal caliber. Toward the ovary, the fallopian tube is dilated and contrast pockets within the fallopian tube at this level. No free spillage of c ontrast around the left ovary. POST PROCEDURE: The patient tolerated the procedure with no adverse effects. IMPRESSION: Tubal adhesions with occlusion. Endometrial canal, endocervical canal unremarkable. COMMENT: Quality ID 145: Final reports for procedures using fluoroscopy that document radiation exp osure indices, or exposure time and number of fluorographic images (if radiation exposure indices are not available) TECHNICAL DOCUMENTATION: JOB ID: [id number] [employer]- All Rights Reserved Reading location - IP/workstation name: [facility]
== END ==
LOC: RAD 14:58
PROVIDERS: ATTEND Obstetrics & Gynecology
DX: N70.93 Salpingitis and oophoritis, unspecified (principal)
CPT/HCPCS: 58340; 74740

== ENCOUNTER → 2019-01-08 | Outpatient (CLI) | payer BC | LOC: LAB 20:15 | PROVIDERS: ATTEND Nurse Practitioner Acute Care | DX: J02.9 Acute pharyngitis, unspecified (principal) | CPT/HCPCS: 87070; 87077 ==

== ENCOUNTER 2019-03-01 17:27 | Emergency (ER) | payer BC ==
--- NOTE | 2019-03-01 18:48 | ER Document Report ---
ED Medical Screen (RME) - General Chief Complaint: Abdominal Pain Stated Complaint: ABDOMINAL PAIN Time Seen by Provider: 03/01/19 18:42 Primary Care Provider: BEAR MENG NP [Primary Care Provider] - Follow up as needed TRAVEL OUTSIDE OF THE [place] IN LAST 30 DAYS: No - HPI Notes: 03/01/19 18:45 Patient is a 23-year-old female with a history of mental health disorder and bowel obstruction 1 year ago who presents complaining of right lower quadrant abdominal pain that began today. Patient states that she will have intermittent sharp stabbing pains in that area. Pain does not radiate. She is eating and drinking without difficulty. She is urinating normally and having normal bowel movements today. She is still flatulent. She has not had any vaginal discharge, odor, or bleeding. Denies SERVIN, fever, neck pain, URI, CP, SOB, or rash. I have treated and performed a rapid initial assessment of this patient. A comprehensive ED assessment and evaluation of the patient, analysis of test results and completion of medical decision making process will be conducted by additional ED providers. I will defer imaging to the next provider when they can evaluate on a bed. PHYSICAL EXAMINATION: GENERAL: Well-appearing, well-nourished and in no acute distress. A&Ox4. Answers questions appropriately. LUNGS: Breath sounds clear to auscultation bilaterally and equal. No wheezes rales or rhonchi. HEART: Regular rate and rhythm without murmurs, rubs, gallops. ABDOMEN: Soft, nondistended abdomen. No guarding, no rebound. Normal bowel sounds present. No CVA tenderness bilaterally. + mild right lower quadrant versus right lower pelvic tenderness (cannot elicit thorough abd exam w/o table, however). Extremities: No cyanosis, clubbing, or edema b/l. NEUROLOGICAL: Normal speech, normal gait. PSYCH: Normal mood, normal affect. - Related Data Allergies/Adverse Reactions: No Known Allergies Allergy (Verified 03/01/19 17:29) Past Medical History Renal/ Medical History: Denies: Hx Peritoneal Dialysis - Immunizations History of Influenza Vaccine for 07/2017 - 12/2017 Season: Unknown Physical Exam - Vital signs Vitals: Temp Pulse Resp BP Pulse Ox 98.4 F 77 20 111/76 100 03/01/19 17:32 03/01/19 17:32 03/01/19 17:32 03/01/19 17:32 03/01/19 17:32 Course - Vital Signs Vital signs: Temp Pulse Resp BP Pulse Ox 98.4 F 77 20 111/76 100 03/01/19 17:32 03/01/19 17:32 03/01/19 17:32 03/01/19 17:32 03/01/19 17:32 Doctor's Discharge - Discharge Referrals: BEAR MENG DIRECTOR INSTRUCTIONAL MATERIAL [Primary Care Provider] - Follow up as needed
[2019-03-01 19:14] LABS: ABSOLUTE EOSINOPHILS # (AUTO) 0.2 10^3/uL (0.0-0.6); ABSOLUTE LYMPHOCYTES (AUTO) 2.7 10^3/uL (0.5-4.7); ABSOLUTE MONOCYTES (AUTO) 0.7 10^3/uL (0.1-1.4); ABSOLUTE NEUT (AUTO) 4.4 10^3/uL (1.7-8.2); BASOPHILS % (AUTO) 0.3 % (0-2); EOSINOPHILS % (AUTO) 2.8 % (0-6); HEMATOCRIT 43.2 % (36.0-47.0); HEMOGLOBIN 14.1 g/dL (12.0-15.5); LYMPHOCYTES % (AUTO) 33.6 % (13-45); MEAN CORPUSCULAR HEMOGLOBIN 30.2 pg (27.0-33.4); MEAN CORPUSCULAR HGB CONC 32.7 g/dL (32.0-36.0); MEAN CORPUSCULAR VOLUME 92 fl (80-97); PLATELET COUNT 265 10^3/uL (150-450); RED BLOOD COUNT 4.67 10^6/uL (3.72-5.28); RED CELL DISTRIBUTION WIDTH 13.9 % (11.5-14.0); SEGMENTED NEUTROPHILS % (AUTO) 54.3 % (42-78); TOTAL CELLS COUNTED % (AUTO) 100 %
[2019-03-01 19:30] LABS: AMORPHOUS SEDIMENT,URINE TRACE /HPF; APPEARANCE,URINE CLOUDY; BILIRUBIN,URINE NEGATIVE (NEGATIVE); COLOR,URINE YELLOW; GLUCOSE, URINE NEGATIVE (NEGATIVE); KETONES,URINE NEGATIVE (NEGATIVE); LEUKOCYTE ESTERASE,URINE NEGATIVE (NEGATIVE); NITRITE,URINE NEGATIVE (NEGATIVE); PROTEIN,URINE NEGATIVE (NEGATIVE); UROBILINOGEN,URINE NEGATIVE mg/dL (<2.0)
[2019-03-01 19:35] LABS: ALANINE AMINOTRANSFERASE 21 U/L (9-52); ALBUMIN 4.6 g/dL (3.5-5.0); ALKALINE PHOSPHATASE 62 U/L (38-126); ANION GAP 10 (5-19); ASPARTATE AMINO TRANSFERASE 24 U/L (14-36); BILIRUBIN,DIRECT 0.2 mg/dL (0.0-0.4); BILIRUBIN,TOTAL 0.3 mg/dL (0.2-1.3); BLOOD UREA NITROGEN 12 mg/dL (7-20); CALCIUM 10.4 mg/dL (8.4-10.2); CARBON DIOXIDE 30 mmol/L (22-30); CHLORIDE 103 mmol/L (98-107); GLUCOSE 90 mg/dL (75-110); POTASSIUM 4.5 mmol/L (3.6-5.0); SODIUM 143.2 mmol/L (137-145); TOTAL PROTEIN 7.6 g/dL (6.3-8.2)
[2019-03-01] MEDS ORDERED: ONDANSETRON HCL INJ/PF 4 MG/2 ML SDV IV ONE (20:21)
[2019-03-01] MEDS ORDERED: MORPHINE SULFATE 10 MG/ML INJ IV ONE (20:21)
--- NOTE | 2019-03-01 20:23 | ER Document Report ---
ED GI/ - General Chief Complaint: Abdominal Pain Stated Complaint: ABDOMINAL PAIN Time Seen by Provider: 03/01/19 18:42 Primary Care Provider: BEAR MENG NP [Primary Care Provider] - Follow up as needed Mode of Arrival: Ambulatory Information source: Patient TRAVEL OUTSIDE OF THE [place] IN LAST 30 DAYS: No - HPI Patient complains to provider of: Abdominal pain Notes: 03/01/19 20:22 Patient here with complaints of right lower quadrant pain. Pain is been present for the last few days. Is constant, worse with any sort of movement, better with rest. No fevers. She has had nausea, but no vomiting or diarrhea. No dysuria or hematuria. No vaginal bleeding or vaginal discharge. Last normal menstrual cycle was 2 weeks ago. No chest pain or shortness of breath. No rash. Patient had a history of bowel obstruction as well as scarring to both fallopian tubes. She denies any rash. No headache or blurred vision. No numbness, tingling, weakness. No other complaints. - Related Data Allergies/Adverse Reactions: No Known Allergies Allergy (Verified 03/01/19 17:29) Past Medical History - Social History Smoking Status: Never Smoker Chew tobacco use (# tins/day): No Frequency of alcohol use: Occasional Drug Abuse: None Family History: Reviewed & Not Pertinent Patient has suicidal ideation: No Patient has homicidal ideation: No Renal/ Medical History: Denies: Hx Peritoneal Dialysis Review of Systems - Review of Systems -: Yes All other systems reviewed and negative Physical Exam - Vital signs Vitals: Temp Pulse Resp BP Pulse Ox 98.4 F 77 20 111/76 100 03/01/19 17:32 03/01/19 17:32 03/01/19 17:32 03/01/19 17:32 03/01/19 17:32 - Notes Notes: GENERAL: alert, cooperative, nontoxic, no distress. HEAD: normocephalic, atraumatic EYES: conjunctiva pink without discharge, no external redness or swelling. EARS: no external swelling, no external redness NOSE: atraumatic, no external swelling MOUTH/THROAT: mucous membranes moist and pink, posterior pharynx without erythema, swelling, exudate. No trismus or drooling. NECK: soft, supple, full range of motion, no meningismus. CHEST: no distress, lungs clear and equal throughout. No wheezing, rales, rhonchi. CARDIAC: regular rate and rhythm, no murmur, normal capillary refill, normal pulses. No peripheral edema noted. ABDOMEN: Soft, tender to palpation of the right lower quadrant. No rebound tenderness. Mild voluntary guarding. BACK: full range of motion, no CVA tenderness. EXTREMITIES: full range of motion of all extremities. No redness, no swelling. NEURO: alert and oriented x 3, no focal deficits, full range of motion of all extremities. PYSCH: appropriate mood, affect. Patient is cooperative. SKIN: pink, warm, dry, no rash. Course - Re-evaluation Re-evalutation: 03/01/19 23:52 Patient is nontoxic-appearing with stable vitals. Patient here with complaints of some lower abdominal pain. She had some nausea, no vomiting. On exam she was tender in the right lower quadrant with some voluntary guarding. Lab work is all unremarkable for any significant abnormalities. Patient has a history of bowel obstruction in the past. Due to her tenderness, CT was ordered with IV and p.o. contrast and showed no acute abnormalities. Urinalysis is unremarkable. Urine negative. Cannot find an exact cause of the patient's pain at this time. I discussed with the patient as well as her mother that she should follow-up with her primary care doctor at the next available appointment for further evaluation but return immediately to the emergency department if she did should develop worsening pain, high fever, persistent vomiting, or for any further concerns. The patient's emergency department workup and current diagnosis were explained to the patient and or family. Follow-up instructions were provided. Medications if prescribed were discussed. Instructions for when to return to the emergency department including specific worrisome symptoms were discussed with the patient and/or family. - Vital Signs Vital signs: Temp Pulse Resp BP Pulse Ox 98.4 F 77 20 111/76 100 03/01/19 17:32 03/01/19 17:32 03/01/19 17:32 03/01/19 17:32 03/01/19 17:32 - Laboratory Result Diagrams: 03/01/19 18:51 03/01/19 18:51 Laboratory results interpreted by me: 03/01/19 18:51 Calcium 10.4 H - Diagnostic Test Radiology reviewed: Image reviewed, Reports reviewed Discharge - Discharge Clinical Impression: Abdominal pain Qualifiers: Abdominal location: right lower quadrant Qualified Code(s): R10.31 - Right lower quadrant pain Condition: Stable Disposition: HOME, SELF-CARE Instructions: Abdominal Pain ([facility]) Additional Instructions: Take medication as prescribed. Follow-up with your doctor at the next available appointment for reevaluation. Follow-up sooner/return to the emergency department for worsening pain, high fever, persistent vomiting, or for any further concerns. Prescriptions: Naproxen [Naprosyn] 500 mg PO BID #20 tablet Ondansetron HCl [Zofran 4 mg Tablet] 1 tab PO Q6H PRN #10 tablet PRN Reason: Referrals: BEAR MENG, CUSTOMER ADVISOR [Primary Care Provider] - Follow up as needed
--- NOTE | 2019-03-01 23:44 | RADIOLOGY REPORT (SQ) ---
CLINICAL HISTORY: RLQ PAIN COMPARISON: None. TECHNIQUE: CT ABDOMEN PELVIS WITH IV CONTRAST on 03/01/2019 8:21 PM CDT This exam was performed according to our departmental dose-optimization program, which includes automated exposure control, adjustment of the mA and/or kV according to patient size and/or use of iterative reconstruction technique. FINDINGS: Lower lungs are clear. Abdomen: There is a small enhancing lesion in the right lobe of the liver measuring 1.4 cm. There is no biliary dilatation. Gallbladder is normal in appearance. The pancreas and spleen are normal in appearance. The adrenal glands and kidneys are unremarkable. Abdominal aorta is normal in course and caliber without aneurysm. There is no free air. There is no retroperitoneal adenopathy. Pelvis: There is no bowel obstruction. Urinary bladder is unremarkable. There is no free fluid. Uterus is normal in size. Appendix is normal. Skeleton: There are no acute osseous findings. No suspicious bony lesions. IMPRESSION: No definite acute inflammatory process. Normal appendix. Indeterminate enhancing right hepatic lobe lesion.
[2019-03-02 00:46] VITALS: BP 100/63
== END 2019-03-02 00:42 | disposition home or self-care (01) ==
LOC: ER 17:27
DX: R10.31 Right lower quadrant pain (principal); R11.0 Nausea
CPT/HCPCS: 99284; 96374; 96375; 36415; 85025; 81025; 80053; 81001; 74177; J2270; J2405

== ENCOUNTER 2019-04-30 23:00 | Emergency (ER) | payer BC ==
[2019-04-30 23:11] VITALS: BP 125/85
== END 2019-04-30 23:15 | disposition left against medical advice (07) ==
LOC: ER 23:00
DX: Z53.21 Procedure and treatment not carried out due to patient leaving prior to being seen by health care provider (principal); S61.452A Open bite of left hand, initial encounter; S61.451A Open bite of right hand, initial encounter; W55.01XA Bitten by cat, initial encounter

== ENCOUNTER 2020-08-18 16:04 | Emergency (ER) | payer SELFPAY ==
[2020-08-18 16:09] VITALS: BP 111/77
--- NOTE | 2020-08-18 16:44 | ER Document Report ---
ED Medical Screen (RME) - General Chief Complaint: Probable Seizure Stated Complaint: POSSIBLE SEIZURE Time Seen by Provider: 08/18/20 16:39 Primary Care Provider: BEAR MEGN NP [Primary Care Provider] - Follow up as needed Mode of Arrival: Ambulatory Information source: Patient Notes: 24-year-old female presented to ED for possible seizures. She states the seizu re-like activity started when she was 18 or 19 years old she would think she was fainting and people would tell her that she was passing out and shaking. She states about 21 she started realizing she was blacking out for longer periods of times and then she would wake up and people tell her she was shaking. She states last night she told her that she was feeling kind of bad and needed to sit down. He she states that he told her that he caught her before she hit her head and then she fell down he caught her she was shaking and then she was grinding her teeth. He states about a minute later she woke up stared at him but she did not know what was going on or where she was. He states about 2-1/2 minutes later she was aware of what was going on. He states she is never wet herself or had an incontinent bowel movement during any of these episodes. Last menstrual cycle started August of this. We will get blood urine and have her seen by one of the providers. She states she was a heavy drinker for a last year and a half but she stopped drinking about a month ago. States she does vape nicotine. I have greeted and performed a rapid initial assessment of this patient. A comprehensive ED assessment and evaluation of the patient, analysis of test results and completion of medical decision making process will be conducted by an additional ED providers. TRAVEL OUTSIDE OF THE [place] IN LAST 30 DAYS: No - Related Data Allergies/Adverse Reactions: No Known Allergies Allergy (Verified 03/01/19 17:29) Past Medical History Renal/ Medical History: Denies: Hx Peritoneal Dialysis Physical Exam - Vital signs Vitals: Temp Pulse Resp BP Pulse Ox 98.3 F 74 16 111/77 100 08/18/20 16:08 08/18/20 16:08 08/18/20 16:08 08/18/20 16:08 08/18/20 16:08 Course - Vital Signs Vital signs: Temp Pulse Resp BP Pulse Ox 98.3 F 74 16 111/77 100 08/18/20 16:08 08/18/20 16:08 08/18/20 16:08 08/18/20 16:08 08/18/20 16:08 Doctor's Discharge - Discharge Referrals: BEAR MENG, REGIONAL CONTROLLER [Primary Care Provider] - Follow up as needed
[2020-08-18 17:11] LABS: ABSOLUTE EOSINOPHILS # (AUTO) 0.1 10^3/uL (0.0-0.6); ABSOLUTE LYMPHOCYTES (AUTO) 1.5 10^3/uL (0.5-4.7); ABSOLUTE MONOCYTES (AUTO) 0.6 10^3/uL (0.1-1.4); BASOPHILS % (AUTO) 0.5 % (0-2); HEMATOCRIT 42.9 % (36.0-47.0); HEMOGLOBIN 14.5 g/dL (12.0-15.5); LYMPHOCYTES % (AUTO) 21.2 % (13-45); MEAN CORPUSCULAR HEMOGLOBIN 32.8 pg (27.0-33.4); MEAN CORPUSCULAR HGB CONC 33.9 g/dL (32.0-36.0); MEAN CORPUSCULAR VOLUME 97 fl (80-97); PLATELET COUNT 230 10^3/uL (150-450); RED BLOOD COUNT 4.44 10^6/uL (3.72-5.28); RED CELL DISTRIBUTION WIDTH 12.9 % (11.5-14.0); SEGMENTED NEUTROPHILS % (AUTO) 69.3 % (42-78); TOTAL CELLS COUNTED % (AUTO) 100 %; WHITE BLOOD COUNT 7.3 10^3/uL (4.0-10.5)
[2020-08-18 17:15] LABS: APPEARANCE,URINE CLEAR; BILIRUBIN,URINE SMALL (NEGATIVE); COLOR,URINE YELLOW; GLUCOSE, URINE NEGATIVE (NEGATIVE); KETONES,URINE TRACE mg/dL (NEGATIVE); LEUKOCYTE ESTERASE,URINE NEGATIVE (NEGATIVE); NITRITE,URINE NEGATIVE (NEGATIVE); PROTEIN,URINE 30 mg/dL (NEGATIVE); URINE SPECIFIC GRAVITY 1.029; UROBILINOGEN,URINE NEGATIVE mg/dL (<2.0)
[2020-08-18 17:38] LABS: BLOOD UREA NITROGEN 13 mg/dL (7-20); CALCIUM 9.9 mg/dL (8.4-10.2); GLUCOSE 98 mg/dL (75-110)
[2020-08-18 17:39] LABS: ALBUMIN 4.9 g/dL (3.5-5.0); ALCOHOL < 10 mg/dL (NONE DETECTED); ALKALINE PHOSPHATASE 47 U/L (38-126); ANION GAP 9 (5-19); ASPARTATE AMINO TRANSFERASE 30 U/L (14-36); BILIRUBIN,DIRECT 0.1 mg/dL (0.0-0.4); BILIRUBIN,TOTAL 0.4 mg/dL (0.2-1.3); CARBON DIOXIDE 26 mmol/L (22-30); CHLORIDE 105 mmol/L (98-107); POTASSIUM 4.5 mmol/L (3.6-5.0); TOTAL PROTEIN 7.7 g/dL (6.3-8.2)
[2020-08-18 17:42] LABS: URINE AMPHETAMINES SCREEN NEGATIVE; URINE BARBITURATES SCREEN NEGATIVE; URINE BENZODIAZEPINES SCREEN NEGATIVE; URINE COCAINE SCREEN NEGATIVE; URINE METHADONE SCREEN NEGATIVE; URINE PHENCYCLIDINE SCREEN NEGATIVE
[2020-08-18 17:43] LABS: URINE MARIJUANA (THC) SCREEN UNCONFIRMED POSITIVE
== END 2020-08-18 22:44 | disposition left against medical advice (07) ==
LOC: ER 16:04
DX: R56.9 Unspecified convulsions (principal); Z53.20 Procedure and treatment not carried out because of patient's decision for unspecified reasons
CPT/HCPCS: 36415; 80053; 80307; 81001; 83735; 84703; 85025; 99281